=== PATIENT | female | born 1980 | race Caucasian/White ===

== ENCOUNTER 2017-03-26 21:15 | Emergency (ER) | payer MEDICAID ==
[2017-03-26 21:40] VITALS: O2SAT 98
[2017-03-26 22:19] LABS: BASO % 0.3 % (0.0-2.0); EOS # 0.1 K/uL (0.0-0.7); EOS % 0.8 % (0.0-4.0); HEMATOCRIT 39.5 % (34.0-47.0); LYMPH # 1.2 K/uL (1.0-4.3); MEAN CELL VOLUME 81.9 fL (81.0-99.0); MEAN CORPUSCULAR HEMOGLOBIN 27.7 pg (27.0-31.0); MEAN CORPUSCULAR HGB CONC 33.9 g/dL (33.0-37.0); MEAN PLATELET VOLUME 7.9 fL (7.2-11.7); MONO # 0.5 K/uL (0.0-0.8); MONO % 5.8 % (0.0-10.0); RED CELL DISTRIBUTION WIDTH 13.9 % (11.5-14.5); WHITE BLOOD COUNT 8.3 K/uL (4.8-10.8)
[2017-03-26] MEDS ORDERED: Morphine 4 MG/ML VIAL ONE (22:22)
[2017-03-26 22:31] LABS: ALB/GLOB RATIO 1.2 (1.0-2.1); ALKALINE PHOSPHATASE 56 U/L (38-126); ALT/SGPT 30 U/L (9-52); AST/SGOT 19 U/L (14-36); BILIRUBIN,TOTAL 1.1 mg/dL (0.2-1.3); BLOOD UREA NITROGEN 11 mg/dL (7-17); CALCIUM 10.3 mg/dl (8.6-10.4); CARBON DIOXIDE 24 mmol/L (22-30); CHLORIDE 102 mmol/L (98-107); CHOLESTEROL 222 mg/dL (0-199); GFR AFRICAN-AMERICAN > 60; GLUCOSE,RANDOM 83 mg/dL (65-105); POTASSIUM 3.8 mmol/L (3.6-5.2); RBC URINE 17 /hpf (0-3); SODIUM 140 mmol/L (132-148); TOTAL PROTEIN 8.3 g/dL (6.3-8.3); URINE BILIRUBIN NEGATIVE (NEGATIVE); URINE BLOOD 2+ (NEGATIVE); URINE COLOR Yellow (YELLOW); URINE GLUCOSE (UA) NORMAL (Normal); URINE KETONE TRACE mg/dL (NEGATIVE); URINE LEUKOCYTE ESTERASE NEG Leu/uL (Negative); URINE PROTEIN NEGATIVE (NEGATIVE); URINE UROBILINOGEN NORMAL mg/dL (0.2-1.0); WBC URINE 2 /hpf (0-5)
[2017-03-26 22:40] LABS: INR 1.5
--- NOTE | 2017-03-26 23:19 | CT ---
EXAM: CT Head Without Intravenous Contrast CLINICAL HISTORY: 36 years old, female; Pain; Headache; Headache not specified; Additional info: Headache x 3 days, h/o multiple dvt's TECHNIQUE: Axial computed tomography images of the head/brain without intravenous contrast. All CT scans at this facility use one or more dose reduction techniques, viz.: automated exposure control; ma/kV adjustment per patient size (including targeted exams where dose is matched to indication; i.e. head); or iterative reconstruction technique. Coronal and sagittal reformatted images were created and reviewed. COMPARISON: No relevant prior studies available. FINDINGS: Brain: No intracranial hemorrhage. No mass. No definite edema. Ventricles: No hydrocephalus. Bones/joints: No acute fracture. Soft tissues: Several small LEFT parotid calcifications. Sinuses: Scattered minimal mucosal thickening of ethmoid sinuses. Mastoid air cells: No mastoid effusion. Orbits: Unremarkable as visualized. IMPRESSION: 1. No acute intracranial abnormality. 2. Incidental/non-acute findings are described above.
--- NOTE | 2017-03-26 23:24 | C.PDOC ---
History Of Present Illness 36 year old female with a Hx of chronic headaches who presents to the ER with a complaint of a headache for the past 2-3 days. Patient reports she has been taking tylenol 2-3 times a day with minimal relief. Patient reports she has a Hx of DVT and had multiple venous abdominal stents placed. Patient is currently taking 20ml of xarelto once a day with good compliance. Denies nausea or vomiting. Time Seen by Provider: 03/26/17 21:37 Chief Complaint (Nursing): Headache History Per: Patient History/Exam Limitations: no limitations Onset/Duration Of Symptoms: Hrs Current Symptoms Are (Timing): Still Present Preceeding Symptoms: None Associated Symptoms: denies: Photophobia, Blurred Vision, Nausea, Vomiting, Extremity Weakness Recent travel outside of the [place]: No Past Medical History Reviewed: Historical Data, Nursing Documentation, Vital Signs Vital Signs: Last Vital Signs Temp 98 F 03/26/17 21:22 Pulse 75 03/26/17 21:22 Resp 20 03/26/17 21:22 BP 154/100 H 03/26/17 21:22 Pulse Ox 98 03/26/17 23:27 - Medical History PMH: Deep Vein Thrombosis, HTN, Pulmonary Embolism Surgical History: No Surg Hx Family History: States: Unknown Family Hx - Social History Hx Tobacco Use: No Hx Alcohol Use: No Hx Substance Use: No - Immunization History Hx Tetanus Toxoid Vaccination: No Hx Influenza Vaccination: No Hx Pneumococcal Vaccination: No Review Of Systems Constitutional: Negative for: Fever, Chills Gastrointestinal: Negative for: Nausea, Vomiting Neurological: Positive for: Headache. Negative for: Weakness, Numbness Physical Exam - Physical Exam Appears: Non-toxic, No Acute Distress Skin: Normal Color, Warm, Dry Head: Atraumatic, Normacephalic Eye(s): bilateral: Normal Inspection, PERRL, EOMI Oral Mucosa: Moist Neck: Normal, Supple Chest: Symmetrical, No Tenderness Cardiovascular: Rhythm Regular, No Murmur Respiratory: Normal Breath Sounds, No Rales, No Rhonchi, No Wheezing Gastrointestinal/Abdominal: Soft, No Tenderness Extremity: Normal ROM (x4), No Tenderness Neurological/Psych: Oriented x3, Normal Speech, Normal Cognition ED Course And Treatment - Laboratory Results Result Diagrams: 03/26/17 22:16 03/26/17 22:16 Lab Interpretation: Normal Urine POC: Negative ECG: Interpreted By Me ECG Rhythm: Sinus Rhythm ECG Interpretation: Normal Rate From EC O2 Sat by Pulse Oximetry: 98 Pulse Ox Interpretation: Normal - Radiology CXR: Interpreted by Me CXR Interpretation: Yes: No Acute Disease - Other Rad head CT X-Ray: Read By Radiologist (neg) Progress Note: EKG, CT head, blood work, and CXR ordered. Morphine, ultram, and zofran administered. Reevaluation Time: 23:25 Reassessment Condition: Improved (KAPLAN much improved) - Physician Consult Information Outcome Of Conversation: 222: d/w PMD, Dr. Hudson ok to eval and d/c if w/u neg. Medical Decision Making Medical Decision Making: acute on chronic headaches- h/o same with Neuro evals neg. h/o DVT's with abd venous stents w good Xaralto compliance- low susp of brain vein abnormality w/u neg, KAPLAN improved pt with only tylenol for headache, low susp of tylenol OD today, only 3 doses in 24 hrs d/c home with Fioricet and Tramadol trial meds. Disposition Doctor Will See Patient In The: Office Counseled Patient/Family Regarding: Studies Performed, Diagnosis - Disposition Referrals: Fred Coulter MD [Primary Care Provider] - Disposition Time: 23:27 Additional Instructions: continue headache meds as needed, workup negative today Trial Fioricet 1 tab every 6 hours as needed Trial Tramadol 1 tab every 4-6 hours as needed. Follow-up with Dr. Coulter or your Neurologist as needed. Prescriptions: Acetaminophen/Butalbital/Caf [Fioricet] 1 tab PO TID PRN #20 tab PRN Reason: Headache traMADol [Ultram] 50 mg PO Q6H PRN #20 tab PRN Reason: pain Instructions: Acute Headache (ED) Forms: [employer] (Belarusian) - Clinical Impression Clinical Impression: Headache - Scribe Statement The provider has reviewed the documentation as recorded by the Scribe Mahesh Valladares All medical record entries made by the Scribe were at my direction and personally dictated by me. I have reviewed the chart and agree that the record accurately reflects my personal performance of the history, physical exam, medical decision making, and the department course for this patient. I have also personally directed, reviewed, and agree with the discharge instructions and disposition.
[2017-03-26 23:37] VITALS: BP 117/85
[2017-03-26 23:42] VITALS: PULSE 68; RESP 17; TEMP 97
--- NOTE | 2017-03-27 09:07 | RAD ---
HISTORY: adm COMPARISON: No prior. FINDINGS: LUNGS: No active pulmonary disease. PLEURA: No significant pleural effusion identified, no pneumothorax apparent. CARDIOVASCULAR: Normal. OSSEOUS STRUCTURES: No significant abnormalities. VISUALIZED UPPER ABDOMEN: Normal. OTHER FINDINGS: None. IMPRESSION: No acute cardiopulmonary disease appreciated.
--- NOTE | 2017-03-27 15:50 | CARD ---
APPROVED REPORT EKG Measurement Heart [id number] <Conclusion> Normal sinus rhythm Low voltage QRS Borderline ECG
== END 2017-03-26 23:42 | disposition home or self-care (01) ==
LOC: C.ER 21:15 → SUPCPDRO 21:15 → C.ER 23:42
DX: R51 Headache (principal)
CPT/HCPCS: 70450; 71010; 80053; 80061; 81001; 82948; 83036; 84484; 84703; 85025; 85610; 85730; 93005; 96374; 96375; 99285; J2270; J2405

== ENCOUNTER 2017-05-28 01:06 | Emergency (ER) | payer MEDICAID ==
[2017-05-28 01:25] VITALS: RESP 20
--- NOTE | 2017-05-28 01:35 | C.PDOC ---
History Of Present Illness 36F c/o anterior chest pain rad to upper back and neck that started just 30 min ago. chest pain improved now feels mainly upper back. has not had this before. pain is constant without exac or reliev fx. hx dvt few years ago after childbirth on xarelto. dx w factor V leiden. Time Seen by Provider: 05/28/17 01:10 Past Medical History Vital Signs: Last Vital Signs Temp 98.9 F 05/28/17 01:23 Pulse 93 H 05/28/17 01:23 Resp 20 05/28/17 01:23 BP 116/87 05/28/17 01:23 Pulse Ox 97 05/28/17 05:12 - Medical History PMH: Deep Vein Thrombosis, HTN, Pulmonary Embolism Family History: States: Other Other Family History: nc - Social History Hx Tobacco Use: No Hx Alcohol Use: No Hx Substance Use: No - Immunization History Hx Tetanus Toxoid Vaccination: No Hx Influenza Vaccination: No Hx Pneumococcal Vaccination: No Review Of Systems Except As Marked, All Systems Reviewed And Found Negative. Constitutional: Negative for: Fever, Chills Cardiovascular: Positive for: Chest Pain Respiratory: Negative for: Cough, Shortness of Breath, Hemoptysis Gastrointestinal: Negative for: Nausea, Vomiting, Abdominal Pain Musculoskeletal: Positive for: Neck Pain, Back Pain Neurological: Negative for: Weakness, Numbness, Altered Mental Status, Headache Physical Exam - Physical Exam Appears: Other (in pain) Skin: Warm, Dry Head: Atraumatic Eye(s): bilateral: PERRL Nose: No Epistaxis Oral Mucosa: Moist Tongue: No Swelling Neck: Normal ROM Cardiovascular: Rhythm Regular Respiratory: No Decreased Breath Sounds, No Accessory Muscle Use, No Rales, No Rhonchi, No Stridor, No Wheezing Gastrointestinal/Abdominal: Soft, No Tenderness Extremity: No Calf Tenderness, No Swelling Pulses: Left Radial: Normal, Right Radial: Normal Neurological/Psych: Oriented x3, Other (no focal deficits) ED Course And Treatment - Laboratory Results Result Diagrams: 05/28/17 02:27 05/28/17 02:27 O2 Sat by Pulse Oximetry: 97 Medical Decision Making Medical Decision Making: ecg- nsr 92, nl axis, no acute ischemia CT angio chest EXAM: CT Angiography Chest With Intravenous Contrast EXAM DATE/TIME: 05/28/2017 1:31 AM CLINICAL HISTORY: 36 years old, female; Pain; Chest pain; Additional info: Chest pain back pain HX of dvt TECHNIQUE: Axial computed tomographic angiography images of the chest with intravenous contrast using pulmonary embolism protocol. All CT scans at this facility use one or more dose reduction techniques, viz.: automated exposure control; ma/kV adjustment per patient size (including targeted exams where dose is matched to indication; i.e. head); or iterative reconstruction technique. MIP reconstructed images were created and reviewed. Coronal and sagittal reformatted images were created and reviewed. CONTRAST: 100 mL of [id number] administered intravenously. COMPARISON: No relevant prior studies available. FINDINGS: PULMONARY ARTERIES: Contrast opacification of the pulmonary arteries is adequate , and there are no filling defects seen to suggest pulmonary embolism. AORTA: No evidence of aortic dissection. LUNGS: Mild scarring and emphysematous changes in the lung apices. No evidence of significant focal consolidation/infiltrate in the lungs. No evidence of diffuse pulmonary vascular congestion. . PLEURAL SPACE: No pneumothorax or pleural effusions seen. HEART: No evidence of significant pericardial effusion. BONES/JOINTS: No acute bony abnormality identified. SOFT TISSUES: No acute abnormality of the visualized soft tissues seen. LYMPH NODES: No evidence of diffuse lymphadenopathy. IMPRESSION: - No evidence of pulmonary embolism or other significant acute abnormality in the chest. - See above for remaining findings. 520am pt sleeping. upon waking she reports her pain is gone. I disc her results , plan for rx, f/u, and rtr Disposition - Disposition Disposition: HOME/ ROUTINE Disposition Time: 05:20 Condition: IMPROVED - Clinical Impression Clinical Impression: Chest pain, Back pain
[2017-05-28 02:30] LABS: BASO % 0.6 % (0.0-2.0); EOS # 0.5 K/uL (0.0-0.7); HEMATOCRIT 38.4 % (34.0-47.0); LYMPH # 1.2 K/uL (1.0-4.3); LYMPH % 24.1 % (20.0-40.0); MEAN CELL VOLUME 81.9 fL (81.0-99.0); MEAN CORPUSCULAR HEMOGLOBIN 27.4 pg (27.0-31.0); MEAN CORPUSCULAR HGB CONC 33.4 g/dL (33.0-37.0); MEAN PLATELET VOLUME 8.3 fL (7.2-11.7); MONO # 0.9 K/uL (0.0-0.8); MONO % 18.3 % (0.0-10.0); RED CELL DISTRIBUTION WIDTH 14.6 % (11.5-14.5)
[2017-05-28 02:38] LABS: INR 1.1
[2017-05-28 02:42] LABS: ALB/GLOB RATIO 1.2 (1.0-2.1); ALKALINE PHOSPHATASE 44 U/L (38-126); ALT/SGPT 36 U/L (9-52); AST/SGOT 25 U/L (14-36); BLOOD UREA NITROGEN 12 mg/dL (7-17); CALCIUM 8.6 mg/dl (8.6-10.4); CARBON DIOXIDE 20 mmol/L (22-30); CHLORIDE 102 mmol/L (98-107); GFR AFRICAN-AMERICAN > 60; GLUCOSE,RANDOM 86 mg/dL (65-105); POTASSIUM 3.6 mmol/L (3.6-5.2); SODIUM 134 mmol/L (132-148); TOTAL PROTEIN 7.2 g/dL (6.3-8.3)
[2017-05-28] MEDS ORDERED: Iodixanol 320 MG/ML 100 ML BOTTLE IV ONE (03:14)
--- NOTE | 2017-05-28 05:09 | CT ---
EXAM: CT Angiography Chest With Intravenous Contrast EXAM DATE/TIME: 05/28/2017 1:31 AM CLINICAL HISTORY: 36 years old, female; Pain; Chest pain; Additional info: Chest pain back pain HX of dvt TECHNIQUE: Axial computed tomographic angiography images of the chest with intravenous contrast using pulmonary embolism protocol. All CT scans at this facility use one or more dose reduction techniques, viz.: automated exposure control; ma/kV adjustment per patient size (including targeted exams where dose is matched to indication; i.e. head); or iterative reconstruction technique. MIP reconstructed images were created and reviewed. Coronal and sagittal reformatted images were created and reviewed. CONTRAST: 100 mL of [id number] administered intravenously. COMPARISON: No relevant prior studies available. FINDINGS: PULMONARY ARTERIES: Contrast opacification of the pulmonary arteries is adequate, and there are no filling defects seen to suggest pulmonary embolism. AORTA: No evidence of aortic dissection. LUNGS: Mild scarring and emphysematous changes in the lung apices. No evidence of significant focal consolidation/infiltrate in the lungs. No evidence of diffuse pulmonary vascular congestion. . PLEURAL SPACE: No pneumothorax or pleural effusions seen. HEART: No evidence of significant pericardial effusion. BONES/JOINTS: No acute bony abnormality identified. SOFT TISSUES: No acute abnormality of the visualized soft tissues seen. LYMPH NODES: No evidence of diffuse lymphadenopathy. IMPRESSION: - No evidence of pulmonary embolism or other significant acute abnormality in the chest. - See above for remaining findings.
[2017-05-28 05:38] VITALS: BP 129/68; PULSE 79; TEMP 98; O2SAT 98
--- NOTE | 2017-05-28 08:13 | RAD ---
Chest x-ray single frontal view History: Chest pain. Comparison: 03/26/2017 Findings: No focal infiltrate or effusion. Heart size within normal limits. Impression: No focal infiltrate or effusion.
== END 2017-05-28 05:38 | disposition home or self-care (01) ==
LOC: C.ER 01:06
DX: R07.9 Chest pain, unspecified (principal); M54.9 Dorsalgia, unspecified
CPT/HCPCS: 71010; 71275; 80053; 84484; 84703; 85025; 85610; 85730; 87040; 96374; 99285; J1885; Q9967

== ENCOUNTER 2017-11-07 13:03 | Emergency (ER) | payer MEDICAID ==
[2017-11-07 13:19] VITALS: RESP 20; TEMP 98.2
[2017-11-07] MEDS ORDERED: Sodium Chloride 0.9% 1,000 ML IV ONE (13:43)
[2017-11-07 13:58] LABS: BASO % 0.5 % (0.0-2.0); EOS # 0.2 K/uL (0.0-0.7); EOS % 3.1 % (0.0-4.0); HEMOGLOBIN 14.7 g/dL (11.0-16.0); LYMPH # 1.4 K/uL (1.0-4.3); LYMPH % 21.5 % (20.0-40.0); MEAN CORPUSCULAR HEMOGLOBIN 28.4 pg (27.0-31.0); MEAN CORPUSCULAR HGB CONC 34.2 g/dL (33.0-37.0); MEAN PLATELET VOLUME 7.8 fL (7.2-11.7); MONO # 0.7 K/uL (0.0-0.8); MONO % 11.2 % (0.0-10.0); NEUT # 4.2 K/uL (1.8-7.0); NEUT % 63.7 % (50.0-75.0); RBC 5.19 Mil/uL (3.80-5.20); RED CELL DISTRIBUTION WIDTH 15.4 % (11.5-14.5); WHITE BLOOD COUNT 6.7 K/uL (4.8-10.8)
--- NOTE | 2017-11-07 13:58 | C.PDOC ---
History Of Present Illness 37 y/o female with history of DVT presents to ED with c/o of lower back pain radiating to front abdomen and right leg since this morning. Patient states she is compliant with Xarelto and denies trauma, fever, chills, chest pain, sob or any other complaints at this time. Time Seen by Provider: 11/07/17 13:37 Chief Complaint (Nursing): Back Pain History Per: Patient History/Exam Limitations: no limitations Onset/Duration Of Symptoms: Days Current Symptoms Are (Timing): Still Present Quality Of Discomfort: "Pain" Past Medical History Reviewed: Historical Data, Nursing Documentation, Vital Signs Vital Signs: Last Vital Signs Temp 98.2 F 11/07/17 17:28 Pulse 79 11/07/17 17:28 Resp 20 11/07/17 17:28 BP 113/78 11/07/17 17:28 Pulse Ox 99 11/07/17 17:28 - Medical History PMH: Deep Vein Thrombosis, HTN, Pulmonary Embolism Surgical History: No Surg Hx Family History: States: No Known Family Hx - Social History Hx Tobacco Use: No Hx Alcohol Use: No Hx Substance Use: No - Immunization History Hx Tetanus Toxoid Vaccination: No Hx Influenza Vaccination: No Hx Pneumococcal Vaccination: No Review Of Systems Constitutional: Negative for: Fever, Chills Gastrointestinal: Positive for: Abdominal Pain. Negative for: Nausea, Vomiting Genitourinary: Negative for: Dysuria Musculoskeletal: Positive for: Back Pain, Leg Pain Skin: Negative for: Rash Neurological: Negative for: Weakness, Numbness Physical Exam - Physical Exam Appears: Non-toxic, No Acute Distress Skin: Warm, Dry, No Rash Head: Atraumatic, Normacephalic Oral Mucosa: Moist Neck: Normal ROM, Supple Cardiovascular: Rhythm Regular Respiratory: Normal Breath Sounds, No Rales, No Rhonchi, No Wheezing Gastrointestinal/Abdominal: Soft, Tenderness (Mild right sided ), No Guarding, No Rebound, Other (rigth flank tenderness) Back: No CVA Tenderness Extremity: Normal ROM, Capillary Refill (<2 seconds) Neurological/Psych: Oriented x3, Normal Speech, Normal Cognition ED Course And Treatment - Laboratory Results Result Diagrams: 11/07/17 13:53 11/07/17 13:53 O2 Sat by Pulse Oximetry: 100 (RA) Pulse Ox Interpretation: Normal Medical Decision Making Medical Decision Making: suspect msk pain (h/o of hnp) vs intrabdominal pathology- labs imaging pending 516: pain improved. pt observed in nad. case discussed indetail with pmd, , who saw pt bedside,agrees with outpt fu Disposition - Disposition Referrals: [facility] [Outside] [facility] [Outside] Disposition: HOME/ ROUTINE Disposition Time: 17:16 Condition: STABLE Additional Instructions: please follow up with your doctor. return to er with worsening symptoms or concerns. you may need further diagnostic workup as an outpt. Prescriptions: Cyclobenzaprine [Cyclobenzaprine HCl] 10 mg PO DAILY PRN #10 tab PRN Reason: Muscle Spasm Naproxen 500 mg PO BID PRN #14 tab PRN Reason: Pain, Mild (1-3) Instructions: Low Back Pain (DC), Acute Abdomen (Belly Pain) Forms: [employer] (Greenlandic) - Clinical Impression Clinical Impression: Low back pain - Scribe Statement The provider has reviewed the documentation as recorded by the Jodyibdaisy Chi All medical record entries made by the Jodyibdaisy were at my direction and personally dictated by me. I have reviewed the chart and agree that the record accurately reflects my personal performance of the history, physical exam, medical decision making, and the department course for this patient. I have also personally directed, reviewed, and agree with the discharge instructions and disposition.
[2017-11-07] MEDS ORDERED: Sodium Chloride 0.9% 1,000 ML ONE (14:02)
[2017-11-07 14:05] LABS: INR 1.1; PROTHROMBIN TIME 12.1 SECONDS (9.7-12.2)
[2017-11-07 14:08] LABS: ALBUMIN 4.5 g/dL (3.5-5.0); ALT/SGPT 19 U/L (9-52); AST/SGOT 22 U/L (14-36); BLOOD UREA NITROGEN 20 mg/dL (7-17); CALCIUM 9.8 mg/dl (8.6-10.4); GFR AFRICAN-AMERICAN > 60; GFR NON-AFRICAN AMERICAN > 60; LIPASE 122 U/L (23-300)
[2017-11-07 14:23] LABS: URINE BILIRUBIN NEGATIVE (NEGATIVE); URINE BLOOD 1+ (NEGATIVE); URINE CLARITY Clear (Clear); URINE COLOR Yellow (YELLOW); URINE GLUCOSE (UA) NORMAL (Normal); URINE LEUKOCYTE ESTERASE NEG Leu/uL (Negative); URINE PROTEIN NEGATIVE (NEGATIVE); URINE UROBILINOGEN NORMAL mg/dL (0.2-1.0)
[2017-11-07 14:24] LABS: HCG,QUALITATIVE URINE NEGATIVE (NEGATIVE)
[2017-11-07] MEDS ORDERED: Iohexol 350mg/ml 100 ML ONE (15:57)
--- NOTE | 2017-11-07 16:58 | CT ---
PROCEDURE: CT Abdomen and Pelvis with contrast HISTORY: rigth flank/right sided abd pain COMPARISON: Abdomen pelvis CT with contrast 12/23/2016. TECHNIQUE: Contrast dose: Omnipaque 350, 100 cc Radiation dose: Total exam DLP = 622.00 mGy-cm. This CT exam was performed using one or more of the following dose reduction techniques: Automated exposure control, adjustment of the mA and/or kV according to patient size, and/or use of iterative reconstruction technique. FINDINGS: LOWER THORAX: Unremarkable. LIVER: A stable tiny lucencies seen the dome of the liver which is otherwise unremarkable appearing. GALLBLADDER AND BILE DUCTS: Unremarkable. PANCREAS: Unremarkable. No gross lesion or ductal dilatation. SPLEEN: Unremarkable. ADRENALS: Unremarkable. No mass. KIDNEYS AND URETERS: Unremarkable. No hydronephrosis. No solid mass. VASCULATURE: Inferior vena cava stent graft is again appreciated extending into the right common iliac vein and the up to the rope left common femoral vein once again. No enhancement is seen yet in the venous structures and patency is indeterminate throughout the extent of the stent graft. Left flank/ anterior left abdominal/pelvic wall varices are reiterated. Abdominal aorta is normal in caliber with normal enhancement associated as well as throughout the local branches of the abdominal aorta. BOWEL: Unremarkable. No obstruction. No gross mural thickening. APPENDIX: Normal appendix. PERITONEUM: Unremarkable. No free fluid. No free air. LYMPH NODES: Unremarkable. No enlarged lymph nodes. BLADDER: Unremarkable. REPRODUCTIVE: Intrauterine device again noted in situ in the endometrial cavity region. BONES: No acute fracture. OTHER FINDINGS: None. IMPRESSION: Nonacute appearing abdomen pelvis CT examination in general. N milton and a vena cava iliofemoral venous stent is identified placed as discussed above. No contrast opacifies the venous system at this time and patency is indeterminate however no gross engorgement of the venous system more prominent varices are identified at this time. Left flank/ anterior left abdominal/pelvic wall varices are reiterated.
[2017-11-07 17:29] VITALS: BP 113/78; PULSE 79
[2017-11-07 19:43] VITALS: O2SAT 100
== END 2017-11-07 17:35 | disposition home or self-care (01) ==
LOC: C.ER 13:03
DX: M54.5 Low back pain (principal)
CPT/HCPCS: 74177; 80053; 81001; 83690; 84703; 85025; 85610; 85730; 96360; 99285; J7040; Q9967

== ENCOUNTER 2018-06-05 08:51 | Emergency (ER) | payer MEDICAID ==
[2018-06-05 09:00] VITALS: TEMP 98.4
[2018-06-05 09:32] LABS: URINE BILIRUBIN SMALL (NEGATIVE); URINE CLARITY Hazy (Clear); URINE COLOR YELLOW (YELLOW); URINE GLUCOSE (UA) NEGATIVE (Normal)
[2018-06-05 09:33] LABS: URINE BLOOD LARGE (NEGATIVE); URINE LEUKOCYTE ESTERASE MODERATE Leu/uL (Negative); URINE PROTEIN 100 mg/dL (NEGATIVE); URINE UROBILINOGEN 0.2 mg/dL (0.2-1.0)
[2018-06-05 09:37] LABS: SQUAMOUS EPITHIAL 2 /hpf (0-5); URINE AMORPHOUS SEDIMENT RARE /ul (<OCC)
[2018-06-05 09:38] LABS: URINE BACTERIA OCC (<OCC)
--- NOTE | 2018-06-05 10:17 | C.PDOC ---
History Of Present Illness 37 year old female presents to the ED for evaluation of dysuria and left abdominal discomfort for 2 days. Patient reports she is sexually active. Denies vaginal discharge, vaginal bleeding, fever, nausea, vomiting, and any other associated symptoms. Time Seen by Provider: 06/05/18 10:12 Chief Complaint (Nursing): Female Genitourinary History Per: Patient History/Exam Limitations: no limitations Onset/Duration Of Symptoms: Days Current Symptoms Are (Timing): Still Present Past Medical History Reviewed: Historical Data, Nursing Documentation, Vital Signs Vital Signs: Last Vital Signs Temp 98.4 F 06/05/18 08:56 Pulse 88 06/05/18 08:56 Resp 18 06/05/18 08:56 BP 121/87 06/05/18 08:56 Pulse Ox 97 06/05/18 08:56 - Medical History PMH: Deep Vein Thrombosis, HTN, Pulmonary Embolism Family History: States: Unknown Family Hx - Social History Hx Tobacco Use: No Hx Alcohol Use: No Hx Substance Use: No - Immunization History Hx Tetanus Toxoid Vaccination: No Hx Influenza Vaccination: No Hx Pneumococcal Vaccination: No Review Of Systems Except As Marked, All Systems Reviewed And Found Negative. Constitutional: Negative for: Fever Gastrointestinal: Positive for: Abdominal Pain (suprapubic discomfort. ) Genitourinary: Positive for: Dysuria. Negative for: Vaginal Discharge, Vaginal Bleeding Physical Exam - Physical Exam Appears: Well, Non-toxic, No Acute Distress Skin: Normal Color, Warm, Dry Head: Atraumatic, Normacephalic Eye(s): bilateral: PERRL Oral Mucosa: Moist Respiratory: Other (NARD) Gastrointestinal/Abdominal: Normal Exam, Soft, Tenderness (mild suprapubic tenderness. ), No Distention, No Guarding, No Rebound Back: No CVA Tenderness Neurological/Psych: Oriented x3, Normal Speech, Normal Cognition ED Course And Treatment - Laboratory Results Lab Interpretation: Abnormal (UA 40 WBC's) Urine POC: Negative O2 Sat by Pulse Oximetry: 97 (RA) Pulse Ox Interpretation: Normal Medical Decision Making Medical Decision Making: Plan: --Macrobid. --Pyridium. --Urine culture --Urinalysis Progress/Update: Patient stable for discharge home. Prescribed Pyridium and Macrobid. Disposition Doctor Will See Patient In The: Office Counseled Patient/Family Regarding: Studies Performed, Diagnosis - Disposition Referrals: Fred Coulter MD [Staff Provider] - Disposition: HOME/ ROUTINE Disposition Time: 10:16 Condition: GOOD Additional Instructions: macrobid 100 mg twice a day for 5 days (antibiotic) Pyridium 100 mg 3x/day as needed for burning pain with urination Motrin 600 mg every 6 hours also for pelvic discomfort outpatient follow-up as needed. Prescriptions: Nitrofurantoin Macrocrystals [Macrobid] 100 mg PO BID #9 cap Phenazopyridine HCl [Pyridium] 100 mg PO TID #6 tablet Instructions: Dysuria, Adult (DC) Forms: [employer] (Martiniquais) - Clinical Impression Clinical Impression: Dysuria - Scribe Statement The provider has reviewed the documentation as recorded by the Scribe (Purnima Urena) Provider Attestation: All medical record entries made by the Scribe were at my direction and personally dictated by me. I have reviewed the chart and agree that the record accurately reflects my personal performance of the history, physical exam, medical decision making, and the department course for this patient. I have also personally directed, reviewed, and agree with the discharge instructions and disposition.
[2018-06-05 10:21] VITALS: BP 110/70; PULSE 78; RESP 16
[2018-06-05 11:25] VITALS: O2SAT 97
== END 2018-06-05 10:21 | disposition home or self-care (01) ==
LOC: C.ER 08:51
DX: R30.0 Dysuria (principal)

== ENCOUNTER 2018-08-07 08:36 | Emergency (ER) | payer MEDICAID ==
[2018-08-07 08:40] VITALS: BMI 27.2
[2018-08-07 08:47] VITALS: TEMP 98
[2018-08-07] MEDS ORDERED: Dexamethasone 4 mg/1 ml IVP STA (09:06)
[2018-08-07] MEDS ORDERED: Magnesium Sulfate 1 gm in D5W 1 GM/100 ML BAG IVPB STA (09:06)
[2018-08-07] MEDS ORDERED: Sodium Chloride 0.9% 1,000 ML IV STA (09:06)
--- NOTE | 2018-08-07 09:06 | C.PDOC ---
History Of Present Illness 38 y/o female pt with hx of DVT with venous abdominal stent presents to the ER c/o acute exacerbated headache that started yesterday. Associated sx includes constant vomiting and light sensitivity. Pt denies fever and trauma. Pt is currently taking xarelto and normally takes unknown prescription for migraine medication but ran out. Pt took ibuprofen at 6:30 this morning with no improvement. Time Seen by Provider: 08/07/18 09:00 Chief Complaint (Nursing): Headache History Per: Patient History/Exam Limitations: no limitations Onset/Duration Of Symptoms: Days (x1) Current Symptoms Are (Timing): Still Present Past Medical History Reviewed: Historical Data, Nursing Documentation, Vital Signs Vital Signs: Last Vital Signs Temp 98.0 F 08/07/18 08:41 Pulse 95 H 08/07/18 08:41 Resp 20 08/07/18 08:41 BP 145/99 H 08/07/18 08:41 Pulse Ox 98 08/07/18 08:41 - Medical History PMH: Deep Vein Thrombosis, HTN, Pulmonary Embolism Family History: States: Unknown Family Hx - Social History Hx Tobacco Use: No Hx Alcohol Use: No Hx Substance Use: No - Immunization History Hx Tetanus Toxoid Vaccination: No Hx Influenza Vaccination: No Hx Pneumococcal Vaccination: No Review Of Systems Except As Marked, All Systems Reviewed And Found Negative. Constitutional: Negative for: Fever, Other (trauma ) Gastrointestinal: Positive for: Vomiting Neurological: Positive for: Headache, Other (photophobia ) Physical Exam - Physical Exam Appears: Non-toxic, In Acute Distress, Other (unc) Skin: Warm, Dry Eye(s): bilateral: Photophobia (mild) Neck: Supple Cardiovascular: Rhythm Regular Respiratory: Normal Breath Sounds, No Rales, No Rhonchi, No Wheezing Neurological/Psych: Oriented x3, Normal Speech, Other (neuro intact ) ED Course And Treatment O2 Sat by Pulse Oximetry: 98 (RA) Pulse Ox Interpretation: Normal - CT Scan/US head Other Rad Studies (CT/US): Read By Radiologist, Radiology Report Reviewed CT/US Interpretation: Accession No. : [id number]. Patient Name / ID : MERARI WRIGHT / [id number]. Exam Date : 08/07/2018 09:57:46 ( Approved ). Study Comment : Sex / Age : F / 38Y. Creator : Shi Ayon. Dictator : Dante Byrd MD. 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 Approver2 : Report Date : 08/07/2018 10:05:46. My Comment : . Date of service: 08/07/2018. PROCEDURE: CT HEAD WITHOUT CONTRAST. HISTORY: Headache. Anticoagulation. COMPARISON: 03/26/2017. TECHNIQUE: Axial computed tomography images were obtained through the head/brain without intravenous contrast. Radiation dose: Total exam DLP = 1041.07 mGy-cm. This CT exam was performed using one or more of the following dose reduction techniques: Automated exposure control, adjustment of the mA and/or kV according to patient size, and/or use of iterative reconstruction technique. FINDINGS: HEMORRHAGE: No intracranial hemorrhage. BRAIN: No mass effect or edema. No atrophy or chronic microvascular ischemic changes. VENTRICLES: Unremarkable. No hydrocephalus. CALVARIUM: Unremarkable. PARANASAL SINUSES: Unremarkable as visualized. No significant inflammatory changes. MASTOID AIR CELLS: Unremarkable as visualized. No inflammatory changes. OTHER FINDINGS: None. IMPRESSION: No acute intracranial abnormality. If headache persists, consider correlation with MRI. Progress Note: Plans: -- CT head. -- decadron. -- Magnesium sulfate. -- Reglan. -- IV fluids. -- toradol. -- POC Progress - Re-Evaluation Re-evaluation Note: 08/07/18 10:57 CO RECUR HEADACHE. NEURO INTACT. +RECUR VOMITING. CT REPORT NEG. WILL DOSE ADDL, CONT OBS - Data Reviewed Data Reviewed: Lab, Diagnostic imaging, Old records Disposition Counseled Patient/Family Regarding: Studies Performed, Diagnosis, Need For Followup, Rx Given - Disposition Referrals: YOUR,PMD [Other] Disposition: HOME/ ROUTINE Disposition Time: 12:54 Condition: IMPROVED Prescriptions: Butalbital/Aspirin/Caffeine [[id number]-[id number]-[id number] 50-325-40] 1 each PO Q4 #6 tablet Prochlorperazine [Compazine] 10 mg PO TID #12 tab Instructions: Migraine Headache (DC) Forms: [facility] (Welsh), Work Excuse - Clinical Impression Clinical Impression: Migraine - Scribe Statement The provider has reviewed the documentation as recorded by the Jodyibdaisy Hernández Do Provider Attestation: All medical record entries made by the Jodyibe were at my direction and personally dictated by me. I have reviewed the chart and agree that the record accurately reflects my personal performance of the history, physical exam, medical decision making, and the department course for this patient. I have also personally directed, reviewed, and agree with the discharge instructions and disposition.
[2018-08-07] MEDS ORDERED: Sodium Chloride 0.9% 1,000 ML ONE (09:19)
[2018-08-07] MEDS ORDERED: Dexamethasone 4 mg/1 ml ONE (09:19)
[2018-08-07] MEDS ORDERED: Magnesium Sulfate 1 gm in D5W 1 GM/100 ML BAG IVPB ONE (09:20)
--- NOTE | 2018-08-07 10:27 | CT ---
Date of service: 08/07/2018 PROCEDURE: CT HEAD WITHOUT CONTRAST. HISTORY: Headache. Anticoagulation. COMPARISON: 03/26/2017. TECHNIQUE: Axial computed tomography images were obtained through the head/brain without intravenous contrast. Radiation dose: Total exam DLP = 1041.07 mGy-cm. This CT exam was performed using one or more of the following dose reduction techniques: Automated exposure control, adjustment of the mA and/or kV according to patient size, and/or use of iterative reconstruction technique. FINDINGS: HEMORRHAGE: No intracranial hemorrhage. BRAIN: No mass effect or edema. No atrophy or chronic microvascular ischemic changes. VENTRICLES: Unremarkable. No hydrocephalus. CALVARIUM: Unremarkable. PARANASAL SINUSES: Unremarkable as visualized. No significant inflammatory changes. MASTOID AIR CELLS: Unremarkable as visualized. No inflammatory changes. OTHER FINDINGS: None. IMPRESSION: No acute intracranial abnormality. If headache persists, consider correlation with MRI.
[2018-08-07 11:26] VITALS: RESP 18
[2018-08-07 12:55] VITALS: O2SAT 98
[2018-08-07 13:22] VITALS: BP 120/80; PULSE 91
== END 2018-08-07 13:22 | disposition home or self-care (01) ==
LOC: C.ER 08:36
DX: G43.909 Migraine, unspecified, not intractable, without status migrainosus (principal); I10 Essential (primary) hypertension; Z86.711 Personal history of pulmonary embolism; Z86.718 Personal history of other venous thrombosis and embolism
CPT/HCPCS: 70450; 81025; 96365; 96367; 96372; 96375; 99285; J0780; J1100; J1885; J2765; J3030; J3475; J7030